=== PATIENT | female | born 1940 | race Caucasian/White ===

== ENCOUNTER 2017-07-20 12:05 | Emergency (ER) | payer OTHER ==
[~2017-07-20] VITALS: Ht 165.1 cm; Wt 55.0 kg
[2017-07-20 12:20] VITALS: BP 140/74; PULSE 94; RESP 18; TEMP 98.4; O2SAT 98
[2017-07-20] MEDS ORDERED: ONDANSETRON HCL 4 MG/2 ML VIAL IV PUSH ONE (13:00)
[2017-07-20] MEDS ORDERED: MORPHINE SULFATE 4 MG/ML INJ IV PUSH ONE (13:00)
--- NOTE | 2017-07-20 13:01 | PD ---
HPI . Pain related to pelvic fracture Chief Complaint: Pain: Acute or Chronic Time Seen by Provider: 12:42 Travel History International Travel<30 days: No Contact w/Intl Traveler<30days: No Traveled to known affect area: No History of Present Illness HPI 76-year-old female presents to the emergency department via EMS for complaint of pain related to pelvic fracture. Patient slipped and fell fell on July 05 and did not present for evaluation until 15 July. Patient went to [facility] in [place] where a pelvis CT scan confirmed a fracture bilaterally on the sacral aspect with vertical orientation. Patient was discharged from [facility] with instructions to follow up with orthopedic surgeon Dr. Hoyos. Patient has an appointment to see Dr. Hoyos tomorrow morning however the pain was so severe today she presented for pain management. Patient states she is able to ambulate and bear weight with moderate amount of pain. Patient was discharged from [facility] with oxycodone however she states is insufficient to adequately treat her pain. Patient denies any chest pain, shortness breath, fever, chills, malaise, abdominal pain, nausea, vomiting, diarrhea, dysuria or lightheadedness. PFSH Past Medical History High Cholesterol: Yes Respiratory: Yes (ASTHMA) Social History Alcohol Use: No Tobacco Use: No Substance Use: No Allergies-Medications (Allergen,Severity, Reaction): Coded Allergies: No Known Allergies (Unverified , 07/20/17) Reported Meds & Prescriptions Reported Meds & Active Scripts Active Reported Zolpidem (Zolpidem Tartrate) 10 Mg Tab 10 Mg PO HS PRN Lovastatin 20 Mg Tab 20 Mg PO DAILY Sertraline (Sertraline HCl) 25 Mg Tab 25 Mg PO DAILY Oxycodone (Oxycodone HCl) 5 Mg Tab Unknown Dose PO Q6HR Review of Systems Except as stated in HPI: all other systems reviewed are Neg Physical Exam Narrative GENERAL: Well-nourished well-developed 76-year-old female in no acute distress SKIN: Focused skin assessment warm/dry. HEAD: Atraumatic. Normocephalic. EYES: Pupils equal and round. No scleral icterus. No injection or drainage. ENT: No nasal bleeding or discharge. Mucous membranes pink and moist. NECK: Trachea midline. No JVD. CARDIOVASCULAR: Regular rate and rhythm. No murmur appreciated. RESPIRATORY: No accessory muscle use. Clear to auscultation. Breath sounds equal bilaterally. GASTROINTESTINAL: Abdomen soft, non-tender, nondistended. Hepatic and splenic margins not palpable. MUSCULOSKELETAL: No obvious deformities. No clubbing. No cyanosis. No edema. BACK: No CVA tenderness. No rash. No point tenderness on palpation of the spine. NEUROLOGICAL: Awake and alert. No obvious cranial nerve deficits. Motor grossly within normal limits. Normal speech. PSYCHIATRIC: Appropriate mood and affect; insight and judgment normal. Data Data Last Documented VS Vital Signs Date Time Temp Pulse Resp B/P (MAP) Pulse Ox O2 Delivery O2 Flow Rate FiO2 07/20/17 16:31 90 18 152/72 (98) 97 Room Air 07/20/17 12:20 98.4 Orders Orders Morphine Inj (Morphine Inj) (07/20/17 13:00) Ondansetron Inj (Zofran Inj) (07/20/17 13:00) Ketorolac Inj (Toradol Inj) (07/20/17 15:00) Hydromorphone Pf Inj (Dilaudid Pf Inj) (07/20/17 15:00) MDM Medical Decision Making Medical Screen Exam Complete: Yes Emergency Medical Condition: Yes Medical Record Reviewed: Yes Differential Diagnosis Differential diagnosis include but are not limited to pelvic fracture, pelvic contusion, pain exacerbation, hip fracture, fall Narrative Course Patient well-nourished well-developed in no acute distress resting in bed. Patient placed on monitor. Patient will be treated for pain with 4 mg IV morphine and 4 mg IV Zofran. Patient states the pain relief from the morphine was inadequate. Patient taking pain relief and control until she can follow-up with Dr. Hoyos. She will be given 30 mg IV Toradol and 1 mg IV Dilaudid. Based on patient's symptoms, clinical presentation, lab results, radiological results, vital sign review and physical exam it is not necessary to admit the patient to the hospital or keep the patient in the emergency department for further evaluation. Patient will be discharged home. She will be discharged home with instructions to take her oxycodone as prescribed. Patient has an appointment with Dr. Hoyos in the morning. Diagnosis Primary Impression: Pain Additional Impression: Pelvic fracture Qualified Codes: S32.9XXD - Fracture of unspecified parts of lumbosacral spine and pelvis, subsequent encounter for fracture with routine healing Referrals: Amilcar Hoyos MD Patient Instructions: General Instructions, Pelvic Fracture (DC) Additional Instructions: Please return to emergency department if your symptoms return or worsen. Follow up with Dr. Hoyos in the morning. Take medications as prescribed. Med/Other Pt SpecificInfo: No Change to Meds Disposition: 01 DISCHARGE HOME Condition: Stable Bailey Gutierrezanika MULLIGAN Jul 20, 2017 13:01
[2017-07-20 13:52] VITALS: BP 133/66; PULSE 96; RESP 19; O2SAT 95
[2017-07-20] MEDS ORDERED: ZOLP10TA3 PO (13:57)
[2017-07-20] MEDS ORDERED: FOLI1TAB6 PO (13:57)
[2017-07-20] MEDS ORDERED: LOVA20TA PO (13:57)
[2017-07-20] MEDS ORDERED: OXYC-392 PO (13:57)
[2017-07-20] MEDS ORDERED: SERT25TA83 PO (13:57)
[2017-07-20] MEDS ORDERED: KETOROLAC TROMETHAMINE 30 MG/ML (IVP) VIAL IV PUSH ONE (15:00)
[2017-07-20] MEDS ORDERED: HYDROmorphone HCL PF 1 MG/ML VIAL IV PUSH ONE (15:00)
[2017-07-20 16:31] VITALS: BP 152/72; PULSE 90; RESP 18; O2SAT 97
== END 2017-07-20 19:50 | disposition home or self-care (01) ==
LOC: NEPE 12:05
DX: S32.9XXD Fracture of unspecified parts of lumbosacral spine and pelvis, subsequent encounter for fracture with routine healing (principal); R10.2 Pelvic and perineal pain; J45.909 Unspecified asthma, uncomplicated; E78.00 Pure hypercholesterolemia, unspecified; W19.XXXD Unspecified fall, subsequent encounter
CPT/HCPCS: 96374; 96375; 99284; J1170; J1885; J2270; J2405